=== PATIENT | female | born 1990 | race Caucasian/White ===

== ENCOUNTER 2020-05-08 17:45 | Emergency (ER) | payer OTHER ==
[~2020-05-08] VITALS: Ht 160 cm; Wt 56.7 kg
[2020-05-08] MEDS ORDERED: XOPENEX HFA15 GM (17:55)
[2020-05-08] MEDS ORDERED: TRELEGY ELLIPT1 EACH (17:55)
== END 2020-05-09 09:49 | disposition home or self-care (01) ==
LOC: ER 17:45
DX: R06.02 Shortness of breath (principal)
CPT/HCPCS: 36600; 71260; 82805; Q9965; 94640 ×2

== ENCOUNTER 2022-07-14 11:02 | Emergency (ER) | payer OTHER ==
[~2022-07-14] VITALS: Ht 157.5 cm; Wt 52.2 kg
[~2022-07-14 11:02] MED LIST: TRELEGY ELLIPT1 EACH; XOPENEX HFA15 GM
[2022-07-14] MEDS ORDERED: MORGIDOX100 MG PO (17:35)
[2022-07-14] MEDS ORDERED: PEPCID AC20 MG PO (17:41)
[2022-07-14] MEDS ORDERED: ONDANSETRON ODT8 MG PO (17:41)
== END 2022-07-14 20:42 | disposition home or self-care (01) ==
LOC: ER 11:02
DX: K52.9 Noninfective gastroenteritis and colitis, unspecified (principal); A49.3 Mycoplasma infection, unspecified site; Z88.2 Allergy status to sulfonamides

== ENCOUNTER → 2022-09-30 | Outpatient (CLI) | payer OTHER ==
[~2022-09-30] MED LIST changes: +MORGIDOX100 MG PO; +ONDANSETRON ODT8 MG PO; +PEPCID AC20 MG PO
== END | disposition home or self-care (01) ==
LOC: TOM 08:50
DX: R10.2 Pelvic and perineal pain (principal); R10.84 Generalized abdominal pain; R93.5 Abnormal findings on diagnostic imaging of other abdominal regions, including retroperitoneum